=== PATIENT | female | born 1945 | race Caucasian/White ===

== ENCOUNTER 2023-03-01 14:07 | Emergency (ER) | payer OTHER ==
[~2023-03-01] VITALS: Ht 165.1 cm; Wt 68.1 kg
[2023-03-01] MEDS ORDERED: OXYB5TAB20 PO (14:47)
[2023-03-01] MEDS ORDERED: OS500 PO (14:47)
[2023-03-01] MEDS ORDERED: ERGO500054 PO (14:47)
[2023-03-01] MEDS ORDERED: APIX5TAB PO (14:47)
[2023-03-01] MEDS ORDERED: DIGO125T84 PO (14:47)
[2023-03-01] MEDS ORDERED: METO-391 PO (14:47)
[2023-03-01] MEDS ORDERED: FURO40TA5 PO (14:47)
[2023-03-01] MEDS ORDERED: LIDOCAINE 5% TRANSDERMAL PATCH TD ONE (16:45)
[2023-03-01] MEDS ORDERED: HYDROCODONE/ACETAMINOPHEN 5-325 MG TABLET PO ONE (16:45)
[2023-03-01 16:56] LABS: BASOPHILS % (AUTO) 0.7 % (0.0-2.0); EOSINOPHILS % (AUTO) 2.4 % (1.0-6.0); HEMATOCRIT 31.8 % (36-46); HEMOGLOBIN 10.4 g/dL (12.0-16.0); LYMPHOCYTES # (AUTO) 1.7 K/uL (1.0-4.8); LYMPHOCYTES % (AUTO) 16.2 % (22.0-44.0); MEAN CORPUSCULAR HEMOGLOBIN 26.1 pg (26.0-34.0); MEAN CORPUSCULAR HGB CONC 32.7 G/dL (31.0-37.0); MEAN CORPUSCULAR VOLUME 80 fL (80-100); MONOCYTES # (AUTO) 1.3 K/uL (0.1-1.0); MONOCYTES % (AUTO) 12.2 % (2.0-9.0); NEUTROPHILS # (AUTO) 7.1 K/uL (1.8-7.7); NEUTROPHILS % (AUTO) 68.5 % (40.0-70.0); PLATELET COUNT (AUTO) 377 K/uL (150-450); RED BLOOD CELL COUNT(AUTO) 3.99 MIL/uL (4.00-5.20); RED CELL DISTRIBUTION WIDTH 19.5 % (11.5-14.5)
[2023-03-01 17:03] LABS: ANION GAP 3 mmol/L (8-16); CARBON DIOXIDE 30 mmol/L (22-29); CHLORIDE 103 mmol/L (98-107); CREATININE 0.59 mg/dL (0.60-1.30); GLOMERULAR FILTR. RATE CALC > 60 mL/min (>60); GLUCOSE,RANDOM 99 mg/dL (70-110); POTASSIUM 3.8 mmol/L (3.5-5.1); SODIUM SERUM 136 mmol/L (136-145)
[2023-03-01 17:09] LABS: ALANINE AMINOTRANSFERASE 8 U/L (12-78); ALBUMIN 2.9 g/dL (3.4-5.0); ALKALINE PHOSPHATASE 81 U/L (46-116); ASPARTATE AMINOTRANSFERASE 21 U/L (15-37); BILIRUBIN,TOTAL 0.3 mg/dL (0.1-1.0); TOTAL PROTEIN, SERUM 8.3 g/dL (6.4-8.2)
[2023-03-01] MEDS ORDERED: LORazepam 1 MG TABLET PO ONE (18:30)
[2023-03-01 20:39] VITALS: BP 120/70
[2023-03-01] MEDS ORDERED: TRAM-559 PO (20:52)
[2023-03-01] MEDS ORDERED: LIDO700A15 TP (20:52)
== END 2023-03-01 22:10 | disposition home or self-care (01) ==
LOC: EMS 14:14
DX: M54.50 Low back pain, unspecified (principal); I10 Essential (primary) hypertension; R32 Unspecified urinary incontinence
CPT/HCPCS: 72148; 80053; 85025; 99284